=== PATIENT | female | born 2000 | race Caucasian/White ===

== ENCOUNTER 2022-09-08 04:17 | Inpatient (IN) ==
[2022-09-08] MEDS ORDERED: OXYTOCIN/LR 20 UNIT/1,000 ML BAG IV ONE ×3 (04:25→17:46)
[2022-09-08] MEDS ORDERED: METHYLERGONOVINE 0.2 MG/1 ML AMP IM PRN ×2 (04:25→16:13)
[2022-09-08] MEDS ORDERED: TRANEXAMIC ACID 1,000 MG in SODIUM CHLORIDE 0.9% 100 ML IV PRN ×2 (04:25→16:13)
[2022-09-08] MEDS ORDERED: ONDANSETRON 4 MG/2 ML VIAL IV PRN ×2 (04:25→17:46)
[2022-09-08] MEDS ORDERED: miSOPROStoL 200 MCG TABLET RECTAL PRN ×2 (04:25→16:13)
[2022-09-08] MEDS ORDERED: CARBOPROST TROMETHAMINE 250 MCG/ML AMP IM PRN ×2 (04:25→16:13)
[2022-09-08] MEDS: LACTATED RINGERS 1,000 ML IV SCH ×3 (04:45→16:28)
[2022-09-08 05:43] LABS: Basophils % 0.4 % (0.0-0.8); Eosinophils # 0.1 10*3/uL (0.0-0.87); Eosinophils % 1.6 % (0.00-10.9); Hemoglobin 9.7 GM/DL (12.0-16.0); Immature Granulocytes % 1.7 %; Immature Granulocytes Absolute 0.14 #; Lymphocytes # 1.5 10*3/uL (1.4-4.0); Lymphocytes % 18.2 % (21.3-54.2); Mean Corpuscular HGB Conc 33.4 GM/DL (32-36); Mean Corpuscular Volume 93.9 FL (87-102); Monocytes # 1.1 10*3/uL (0.11-0.8); Monocytes % 13.3 % (1.7-12.7); Neutrophils % 64.8 % (38.7-73.9); Platelet Count 202 T/CUMM (130-400); Red Blood Count 3.09 MC/CUMM (3.8-5.5); Red Cell Distribution Width 13.7 % (9.3-17.3); White Blood Count 8.3 T/CUMM (4-12)
[2022-09-08] MEDS ORDERED: OXYTOCIN/LR 20 UNIT/1,000 ML BAG IV SCH (06:00)
[2022-09-08 06:02] LABS: Albumin 2.6 G/DL (3.4-5.0); Bilirubin,Total 0.8 MG/DL (0.20-1.00); Calcium 8.7 MG/DL (8.5-10.1); Osmolality,Calculated 276.5 MOS/KG (273-304); Potassium 3.4 MMOL/L (3.5-5.1); Total Protein 6.1 G/DL (6.4-8.2)
[2022-09-08] MEDS ORDERED: FAMOTIDINE 20 MG TABLET PO ONE (09:48)
[2022-09-08] MEDS ORDERED: NALOXONE 0.4 MG/ML VIAL IV PRN (09:48)
[2022-09-08] MEDS ORDERED: diphenhydrAMINE 50 MG/1 ML VIAL IV PRN (09:48)
[2022-09-08] MEDS ORDERED: LACTATED RINGERS 1,000 ML IV ONE (09:48)
[2022-09-08] MEDS ORDERED: hydrOXYzine HCL 25 MG/1 ML VIAL IM PRN (09:48)
[2022-09-08] MEDS ORDERED: CITRIC ACID/SODIUM CITRATE 30 ML UDCUP PO ONE (09:48)
[2022-09-08] MEDS ORDERED: ePHEDrine 50 MG/ML VIAL IV PRN (09:48)
[2022-09-08] MEDS ORDERED: PROMETHAZINE 25 MG/1 ML VIAL IM ONE (09:48)
[2022-09-08] MEDS ORDERED: fentaNYL 2 MCG/ROPIV 0.2% EPID 100 ML EPIDURAL SCH (10:00)
[2022-09-08] MEDS ORDERED: FAMOTIDINE 20 MG/2 ML VIAL IV ONE ×2 (11:21→11:23)
[2022-09-08] MEDS ORDERED: MEPERIDINE 50 MG/1 ML VIAL IV PRN (11:24)
[2022-09-08] MEDS ORDERED: BUTORPHANOL 2 MG/ML VIAL IV PRN (11:33)
[2022-09-08] MEDS ORDERED: BUTORPHANOL 1 MG/ML VIAL IV PRN ×2 (12:09→14:01)
[2022-09-08] MEDS ORDERED: BUTORPHANOL 1 MG/ML VIAL ONE (14:03)
[2022-09-08] MEDS: diphenhydrAMINE 50 MG/1 ML VIAL IV PRN ×2 (14:59→20:18)
[2022-09-08] MEDS ORDERED: MEPERIDINE 25 MG/1 ML VIAL IV PRN (15:30)
[2022-09-08] MEDS ORDERED: ceFAZolin 3,000 MG in SYRINGE 1 EACH IV ONE (16:13)
[2022-09-08] MEDS ORDERED: TRANEXAMIC ACID 1,000 MG/10 ML VIAL ONE (16:19)
[2022-09-08] MEDS ORDERED: miSOPROStoL 200 MCG TABLET ONE (16:19)
[2022-09-08] MEDS ORDERED: SODIUM CHLORIDE 0.9% 0 ML IV ONE (16:19)
[2022-09-08] MEDS ORDERED: CARBOPROST TROMETHAMINE 250 MCG/ML AMP IM ONE (16:20)
[2022-09-08] MEDS ORDERED: METHYLERGONOVINE 0.2 MG/1 ML AMP ONE (16:20)
[2022-09-08] MEDS ORDERED: OXYTOCIN/LR 30 UNIT/1,000 ML BAG IV ONE (16:22)
[2022-09-08] MEDS ORDERED: BUPIVACAINE SPINAL 0.75% 2 ML AMP SPINAL ONE (16:28)
[2022-09-08] MEDS ORDERED: buprenorphine HCL 0.3 MG/ML VIAL ONE (16:28)
[2022-09-08] MEDS ORDERED: ONDANSETRON 4 MG/2 ML VIAL ONE ×2 (16:28→17:41)
[2022-09-08] MEDS ORDERED: OXYTOCIN 10 UNIT/ML VIAL ONE (16:38)
[2022-09-08] MEDS ORDERED: OXYTOCIN 10 UNIT/ML VIAL IM ONE (16:40)
[2022-09-08] MEDS ORDERED: PHENYLEPHRINE 1 MG/10 ML SYRINGE IV ONE ×2 (17:12→17:29)
[2022-09-08 17:36] LABS: Glucose,Urine (UA) Negative (Negative); Mucus,Urine Occasional /LPF (Occasional); Protein,Urine 30 mg/dL (Negative); RBC,Urine 7 /HPF (0-4); Squamous Epithelial Cell,Urine Occasional /HPF (0-10); Urine Appearance Clear (Clear); Urine Color Yellow (Yellow); Urine Specific Gravity 1.032 (1.001-1.035)
[2022-09-08 17:37] LABS: Bilirubin,Urine Negative (Negative); Blood, Urine Moderate mg/dL (Negative); Ketones,Urine >=160 mg/dL (Negative); Nitrite,Urine Negative (Negative); Urine Urobilinogen 0.2 eU/dL (<2.0)
[2022-09-08 17:38] LABS: Cord Arterial Blood HCO3 21.3 MMOL/L; Cord Venous Blood HCO3 22.3 MMOL/L; Cord Venous Blood PCO2 46.8 MMHG
[2022-09-08] MEDS ORDERED: PROMETHAZINE 25 MG/1 ML VIAL ONE (17:42)
[2022-09-08] MEDS ORDERED: RHO(D) IMMUNE GLOBULIN 300 MCG SYRINGE IM ONE (17:46)
[2022-09-08] MEDS ORDERED: ACETAMINOPHEN 325 MG TABLET PO PRN (17:46)
[2022-09-08] MEDS ORDERED: HYDROmorphone 1 MG/1 ML SYRINGE IV PRN (17:56)
[2022-09-08] MEDS ORDERED: LACTATED RINGERS 1,000 ML IV SCH (18:00)
[2022-09-08] MEDS: ACETAMINOPHEN 500 MG TABLET PO SCH (20:16)
[2022-09-09] MEDS: KETOROLAC 30 MG/1 ML VIAL IV SCH ×2 (00:25→05:38)
[2022-09-09] MEDS: ACETAMINOPHEN 500 MG TABLET PO SCH ×3 (02:05→16:37)
[2022-09-09 05:07] LABS: Basophils % 0.3 % (0.0-0.8); Eosinophils % 0.1 % (0.00-10.9); Hematocrit 26.7 VOL% (35.7-47.0); Hemoglobin 8.8 GM/DL (12.0-16.0); Immature Granulocytes Absolute 0.13 #; Lymphocytes # 1.5 10*3/uL (1.4-4.0); Lymphocytes % 11.4 % (21.3-54.2); Mean Corpuscular Volume 94.7 FL (87-102); Mean Platelet Volume 10.1 FL (9.6-12.0); Monocytes % 7.8 % (1.7-12.7); Neutrophils % 79.4 % (38.7-73.9); Platelet Count 175 T/CUMM (130-400); Red Blood Count 2.82 MC/CUMM (3.8-5.5); Red Cell Distribution Width 13.8 % (9.3-17.3); White Blood Count 12.9 T/CUMM (4-12)
[2022-09-09] MEDS: MAGNESIUM HYDROXIDE SUSP 30 ML UDCUP PO PRN (07:56)
[2022-09-09] MEDS: DOCUSATE SODIUM 100 MG CAPSULE PO SCH ×2 (07:56→21:33)
[2022-09-09] MEDS: IRON (CARBONYL)/VIT C/B12/FA TABLET PO SCH (09:25)
[2022-09-09] MEDS: MULTIVITAMIN (PRENATAL) TABLET PO SCH (09:25)
[2022-09-09] MEDS: IBUPROFEN 800 MG TABLET PO PRN ×2 (12:16→21:33)
[2022-09-09] MEDS ORDERED: ACETAMINOPHEN 500 MG TABLET PO PRN ×2 (16:48→16:54)
[2022-09-09] MEDS: SIMETHICONE CHEW 80 MG TABLET PO PRN (21:32)
[2022-09-10 07:26] VITALS: BP 95/55
[2022-09-10] MEDS ORDERED: INFLUENZA VIRUS VACCINE 0.5 ML SYRINGE IM ONE (09:00)
[2022-09-10] MEDS: DOCUSATE SODIUM 100 MG CAPSULE PO SCH (09:16)
[2022-09-10] MEDS: MAGNESIUM HYDROXIDE SUSP 30 ML UDCUP PO PRN (09:16)
[2022-09-10] MEDS: MULTIVITAMIN (PRENATAL) TABLET PO SCH (09:16)
[2022-09-10] MEDS: SIMETHICONE CHEW 80 MG TABLET PO PRN (09:16)
[2022-09-10] MEDS: IRON (CARBONYL)/VIT C/B12/FA TABLET PO SCH (09:16)
[2022-09-10] MEDS ORDERED: DIPH/TET/ACEL PERT BOOSTER VACCINE 0.5 ML VIAL IM ONE (12:32)
== END 2022-09-10 15:01 | disposition home or self-care (01) | DRG 540 ==
LOC: N.LDOUT 04:17 → N.LD 04:19 → N.OB 21:30
PROVIDERS: ADMIT Obstetrics & Gynecology; ATTEND Obstetrics & Gynecology
PROC: LDCSECT (ICD-10-PCS; 2022-09-08 16:30)